=== PATIENT | male | born 1975 | race Two or more races ===

== ENCOUNTER 2019-03-10 22:14 | Emergency (ER) | payer SELFPAY ==
[~2019-03-10] VITALS: Ht 167.6 cm; Wt 81.2 kg
[2019-03-10 22:36] VITALS: BP 125/73
[2019-03-10] MEDS ORDERED: LIDOCAINE /MPF 1% VIAL 5 ML VIAL ONE (23:33)
[2019-03-11] MEDS ORDERED: LIDOCAINE HCL/PF 1% 30 ML VIAL TP ONE
== END 2019-03-11 00:15 | disposition home or self-care (01) ==
LOC: ER 22:14
DX: S60.453A Superficial foreign body of left middle finger, initial encounter (principal); W45.8XXA Other foreign body or object entering through skin, initial encounter; Y93.89 Activity, other specified; Y92.89 Other specified places as the place of occurrence of the external cause; Y99.8 Other external cause status
CPT/HCPCS: 10120; 73140; 99284; A6402 ×2; A6403; J3490 ×2